=== PATIENT | female | born 1965 | race Caucasian/White ===

== ENCOUNTER 2018-02-01 08:44 | Day surgery (SDC) | payer OTHER, SELFPAY ==
[2018-02-01] MEDS: SODIUM CHLORIDE 0.9% 1,000 ML 200 ML IV (09:07)
[2018-02-01 09:20] VITALS: BP 137/88; PULSE 73; RESP 16; TEMP 35.9; O2SAT 98; BMI 38.9
[2018-02-01] MEDS: TETRACAINE/BENZOCAINE/BUTAMBEN (CETACAINE) BOTTLE 1 SPRAY TOP (10:20)
[2018-02-01] MEDS: LIDOCAINE 4% SOLN 50 ML 20 ML TOP (10:21)
[2018-02-01] MEDS: MIDAZOLAM 5 MG/5 ML VIAL IV (10:31)
[2018-02-01] MEDS: fentaNYL 250 MCG/5 ML INJ IV (10:32)
--- NOTE | 2018-02-01 10:42 | P.OP_ITS ---
Operative Date/Time/Diagnoses Date of procedure: 02/01/18 Time of procedure: 10:39 Pre-op diagnosis: Screening colonoscopy Gastritis and reflux Procedure & Clinicians Procedure: Esophagogastroduodenoscopy with biopsies and colonoscopy to the cecum Same procedure as scheduled: Yes Indications: No prior colonoscopy GERD symptoms Surgeon: Lynne Khalil Anesthesia Type: Sedation (Versed 10 mg; fentanyl 250 mcg) Operative Notes Findings: 1. Normal duodenum 2. Moderate gastritis with superficial ulcerations in the pyloric channel 3. GE junction at 40 cm from the incisors with a very small-less than 1 cm- sliding hiatal hernia 4. Very irregular appearing Z-line 5. Excellent prep. 6. No polyps or mass lesions 7. No AV malformations 8. Mild sigmoid diverticulosis without false passages 9. Grade 1-2 internal hemorrhoids Closure Type: not applicable Procedure in detail: After obtaining informed consent, the patient was brought to the GI suite and placed in the left lateral decubitus position on the examination table. After placement of appropriate monitors, the patient was given incremental doses of Versed and Fentanyl until an appropriate level of sedation was achieved. A time out was held per SCOAP protocol. A digital rectal examination was performed and did not reveal any masses or obstructing lesions. The colonoscope was gently passed into the patient's anus and the entire colon navigated to the level of the cecum with minimal difficulty. Once in the cecum, the scope was withdrawn being sure to go before and beyond all mucosal folds and prominences and get an excellent examination. The findings are noted above. At the level of the rectal vault, the scope was retroflexed and the internal anal canal was examined. The scope was straightened and air aspirated from the colon. The instrument was removed from the patient's body and the procedure was concluded. The patient was allowed to awaken from sedation without difficulty and taken to the post-anesthesia care unit in good condition. Total sedation time was 41 min Total colonoscopy withdrawal time was 12 min Complications: none Condition: stable Disposition: PACU Plan for aftercare: 1. Discharge to home 2. Plan for next colonoscopy in 10 years or as clinically indicated 3. We will contact you with pathology results and recommendations
[2018-02-01 10:55] VITALS: BP 132/81; PULSE 77; RESP 15; TEMP 36.3; O2SAT 98
--- NOTE | 2018-02-01 11:06 | SUR.PHASEII ---
pt to opd from [facility]ire[facility] shorts, taking fluids and crackers no co's , spouse at side
[2018-02-01 11:18] VITALS: BP 137/86; PULSE 68; RESP 16; TEMP 36.2; O2SAT 99
[2018-02-01 11:23] VITALS: BMI 38.9
--- NOTE | 2018-02-01 11:23 | SUR.PREOP ---
1120 pt discharged steady on feet, vss, no co's
--- NOTE | 2018-02-01 23:19 | PATH_ITS ---
Specimen ID: [id number] [facility] #: [id number] Control ID: [facility] PATHOLOGY ONLY [address] [place] [address] Patient Details ADRIANA PONCE : 1965 Age(y/m/d): Gender: F SSN: Additional Information: Clinical Info: [id number] Specimen Details Date collected: 02/01/20182318 Local Date received: 02/01/2018 Date entered: 02/01/2018 Date reported: 02/07/2018 1905 ET Physician Details Ordering: Joaquin HAMPTON Referring: ID: Tests Ordered: Pathology Report Clinician Provided ICD Code(s) & Clinical History: Material Submitted: () PART A: DUODENAL PART B: ANTRAL PART C: GE JUNCTION Diagnosis: (02) Duodenum, Biopsy: No diagnostic abnormality. Negative for intraepithelial lymphocytosis, villous blunting, or other features of celiac sprue. Negative for Giardia organisms, dysplasia, and malignancy. Gastric Antrum, Biopsy: Gastric antrum with mild chronic gastritis. Negative for Helicobacter organisms. Negative for intestinal metaplasia. No evidence of dysplasia or malignancy. GE Junction, Biopsy: Esophageal squamous epithelium with mild chronic active esophagitis. Negative for intestinal metaplasia. Negative for eosinophilic esophagitis. No evidence of malignancy or dysplasia. BFI/02/02/2018 Pathologist Provided ICD Code(s): (02) K29.70 CPT Codes: (02) 246464, 650050, 825397 Gross Description: (01) Received three formalin-filled containers, each labeled with the patient's name: In a container labeled duodenal, are two 0.1-0.2 cm portions of tissue, entirely submitted in cassette A. In a container labeled antral, is an extremely tiny less than 0.1 cm portion of tissue, entirely submitted in cassette B. In a container labeled GE junction, the specimen consists of an extremely tiny less than 0.1 cm portion of tissue, entirely submitted in cassette C. (DC: [id number]) /FRR This is an amended report due to a clerical error. There is no change in the diagnosis. This case is amended in order for the results to cross the electronic interface. The final diagnosis is unchanged. This case was originally reviewed and reported by Dr. Mo Gresham on 02/02/2018. Electronically signed by (02) Joellen Lewis MD, Pathologist NPI- [id number]
--- NOTE | 2018-02-07 15:17 | PM.HP.1 ---
History of Present Illness Date Patient Seen: 02/01/18 Time Patient Seen: 09:17 Chief complaint: [id number] Narrative: Pleasant 53-year-old lady who presents for screening colonoscopy. Additionally, she is having symptoms related to reflux. She has never had either procedure. She denies any problems associated with the function of her lower GI tract. She complains of frequent burping and waking up with burning fluid in her throat. She is taking a proton pump inhibitor but she does not feel it is working as well as use to work. She wonders if changing the medication would be helpful. Patient History Surgical History History of bladder suspension procedure History of cystoscopy History of third molar tooth extraction Status post endometrial ablation Status post exploratory laparotomy Status post tonsillectomy and adenoidectomy Status post vaginal hysterectomy (12/03/13) Family & Social History Family History: Reviewed 02/07/18 by Lynne Khalil MD Social History: household members spouse Meds Home Medications Medication Instructions Recorded Confirmed Type esomeprazole magnesium [Nexium] 20 mg PO DAILY 02/01/18 02/01/18 History hydrochlorothiazide 12.5 mg PO DAILY 02/01/18 02/01/18 History levothyroxine 88 mcg PO DAILY 02/01/18 02/01/18 History metoprolol succinate 50 mg PO DAILY 02/01/18 02/01/18 History Allergies Allergy/AdvReac Type Severity Reaction Status Date / Time meloxicam [From MOBIC] Allergy Severe FEET Verified 02/01/18 09:15 SWELLING latex [LATEX] Allergy Mild Rash Verified 02/01/18 09:15 Review of Systems Review of Systems All systems reviewed & are unremarkable except as noted in HPI and below Exam Vital Signs (past 8 hours): Oxygen Delivery Method Room Air Narrative Exam Narrative: Very pleasant well-nourished well-developed lady in no distress HEENT: Normocephalic and atraumatic, pupils equal round reactive to light accommodation with anicteric sclera Lungs: Clear to auscultation bilaterally Heart: Regular rate and rhythm Abdomen: Soft, obese, active bowel sounds. Multiple healed incisions consistent with stated history. No palpable abdominal masses. Minimal epigastric tenderness to palpation. Extremities: Warm and well perfused. No tissue loss noted Assessment & Plan Plan: Assessment/Plan Narrative: I have recommended EGD and colonoscopy today. The patient expressed understanding of the risks associated with these procedures and a desire to complete them today.
== END 2018-02-01 11:20 | disposition home or self-care (01) ==
PROVIDERS: PCP Physician Assistant Medical; Visit Provider Surgery
PROC: 0DJD8ZZ Inspection of Lower Intestinal Tract, Via Natural or Artificial Opening Endoscopic (ICD-10-PCS; CPT 45378; principal; 2018-02-01 09:45)
PROC: 0DJ08ZZ Inspection of Upper Intestinal Tract, Via Natural or Artificial Opening Endoscopic (ICD-10-PCS; CPT 43239; 2018-02-01 09:45)
DX: Z12.11 Encounter for screening for malignant neoplasm of colon (principal); K29.70 Gastritis, unspecified, without bleeding; K44.9 Diaphragmatic hernia without obstruction or gangrene; K21.9 Gastro-esophageal reflux disease without esophagitis; K57.30 Diverticulosis of large intestine without perforation or abscess without bleeding; K64.1 Second degree hemorrhoids
CPT/HCPCS: 43239; 45378; 99152; 99153; J2250; J3010

== ENCOUNTER → 2020-10-17 10:56 | Outpatient (CLI) | payer BC, SELFPAY ==
[2020-10-17 12:31] LABS: COVID19 -Nasal RAPID Negative (Negative)
== END ==
PROVIDERS: PCP Physician Assistant Medical; Visit Provider Physician Assistant
DX: Z20.822 Contact with and (suspected) exposure to COVID-19 (principal)
CPT/HCPCS: 87635

== ENCOUNTER → 2020-10-19 13:14 | Outpatient (CLI) | payer BC, SELFPAY ==
--- NOTE | 2020-10-19 | DI.NM.S_ITS ---
PROCEDURE: NM EXERCISE TREADMILL NON NUC COMPARISON: None. INDICATIONS: P A-FIB FINDINGS: The patient exercised for 5 minutes and 1 second, reaching 7.0 METs, TRICIA +31%. 114% of maximum predicted heart rate achieved, consistent with exaggerated response to exercise. Appropriate BP response to exercise. No angina during the study. Dyspnea during exercise. IMPRESSION: Low risk, normal treadmill ECG only stress test. Reduced exercise tolerance (TRICIA +31%) with dyspnea during exercise. No angina during the study. Dictated by: Ronni Alvarenga MD on 10/20/2020 at 12:53 Approved by: Ronni Alvarenga MD on 10/20/2020 at 12:55
--- NOTE | 2020-10-19 | DI.ECHO.S_ITS ---
[facility] +---------+ : : [address] : [address] : : : : [id number] : : : : Phone: [phone]+ Echocardiogram Report + + :Name: ADRIANA PONCE Study Date: 10/19/2020 Height: 65 in : :[facility] ReadingLocation: Weight: 236 lb : : Gender: Female BSA: 2.1 m2 : :: 1965 Age: 55 yrs BP: 132/74 mmHg: :Reason For Study: PROXYSMAL ATRIAL FIBRILLATION : : Performed By: Leda Johnson : :Referring: Sis Aas : + + Interpretation Summary The left ventricle is normal in size.The ejection fraction is estimated to be 60-65%. The right ventricle is normal in size and function. No significant valvular pathology seen. The IVC is of normal diameter and collapses greater than 50% with a sniff. This suggests a low right atrial pressure of 3 mm Hg. Procedure: A two-dimensional transthoracic echocardiogram with color flow and Doppler was performed. The study quality was technically adequate. There is no prior echocardiogram noted for this patient. The patient was in sinus rhythm with heart rates between 70-83 bpm during the exam. Left Ventricle: The left ventricle is normal in size. Proximal septal thickening is noted. There is no echo evidence for significant left ventricular outflow tract obstruction. There is no thrombus. The ejection fraction is estimated to be 60-65%. There are no focal wall motion abnormalities. Diastolic parameters suggest a relaxation abnormality of the left ventricle, consistent with probable normal filling pressures. Right Ventricle: The right ventricle is normal in size and function. Atria: The left atrial size is normal. In subcostal view, an artifact seen in LA. Right atrial size is normal. There is no Doppler evidence for an interatrial shunt. Mitral Valve: The mitral valve is normal in structure and function. There is trace mitral regurgitation. Aortic Valve: The aortic valve is trileaflet. The aortic valve opens well. There is no aortic valve stenosis. No aortic regurgitation is present. Tricuspid Valve: The tricuspid valve is normal in structure and function. There is trace tricuspid regurgitation. Pulmonary artery pressures cannot be estimated because of the lack of a measurable TR jet velocity but the IVC suggests a CVP of around 3 mmHg. Pulmonic Valve: The pulmonic valve is not well seen, but is grossly normal. There is no pulmonic valvular regurgitation. Great Vessels: The aortic root is normal size. The dimensions of the ascending aorta are normal. The IVC is of normal diameter and collapses greater than 50% with a sniff. This suggests a low right atrial pressure of 3 mm Hg. Pericardium/ Pleura There is no pericardial effusion. There is no pleural effusion. MMode/2D Measurements & Calculations LVIDd: 4.9 cm LVOT diam: 2.0 cm LVIDs: 3.0 cm Ao root diam: 2.7 cm FS: 38.8 % asc Aorta Diam: 2.9 cm EPSS: 0.59 cm Ao Arch Diam (Prox Trans): 2.8 cm IVSd: 0.80 cm LVPWd: 0.62 cm LV rader. diameter/BSA (cm/m^2): 2.3 LV sys. diameter/BSA (cm/m^2): 1.4 LA A2 area: 21.8 cm2 RA long axis: 5.4 cm LA A4 area: 19.0 cm2 RA area: 16.4 cm2 LA length (vol): 5.6 cm RA vol: 42.7 ml LA vol: 63.2 ml RA : 20.1 ml/m2 LA vol index: 29.8 ml/m2 IVC diam: 1.4 cm RVD1 (basal): 3.4 cm TAPSE: 2.3 cm Doppler Measurements & Calculations Ao V2 max: 160.4 cm/sec LVOT Max Daniel: 105.3 cm/sec Ao V2 mean: 112.3 cm/sec LV V1 max P.4 mmHg Ao max P.3 mmHg LV V1 VTI: 23.2 cm Ao mean P.6 mmHg JUAN JOSE(I,D): 2.1 cm2 Ao V2 VTI: 32.9 cm JUAN JOSE(V,D): 2.0 cm2 sev ratio: 0.71 JUAN JOSE indexed to BSA (cm^2/m^2): 1.0 MV E max daniel: 106.7 cm/sec PA V2 max: 101.1 cm/sec MV A max daniel: 98.2 cm/sec PA V2 mean: 78.0 cm/sec MV E/A: 1.1 PA mean P.6 mmHg Med Peak E' Daniel: 9.0 cm/sec PA pr(Accel): 31.0 mmHg E/E' med: 11.8 Lat Peak E' Daniel: 10.1 cm/sec E/E' lat: 10.6 E/e' average: 11.2 MV dec time: 0.25 sec SVLVOT): 70.4 ml Reading Physician:06:41 PM
== END ==
PROVIDERS: PCP Physician Assistant Medical; Referring Provider Internal Medicine Cardiovascular Disease; Visit Provider Internal Medicine Cardiovascular Disease
DX: I48.91 Unspecified atrial fibrillation (principal)
CPT/HCPCS: 93017; 93306